=== PATIENT | female | born 1935 | race Caucasian/White ===

== ENCOUNTER 2018-06-26 13:56 | Emergency (ER) | payer OTHER, MEDICARE ==
[2018-06-26] MEDS ORDERED: AMLO-127 PO (14:11)
[2018-06-26] MEDS ORDERED: DUL20 PO (14:12)
[2018-06-26] MEDS ORDERED: DIPHTH/TETANUS/ACEL. PERTUSSIS IM ONE (14:20)
[2018-06-26 14:33] LABS: PLATELET COUNT, AUTOMATED 289 K/uL (150-450)
[2018-06-26 14:39] LABS: INR 0.92
[2018-06-26] MEDS ORDERED: IOPAMIDOL 76% 150 ML INFUS BTL 150 ML ONE (14:40)
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
[2018-06-26 16:00] VITALS: BP 166/92
== END 2018-06-26 16:17 | disposition home or self-care (01) ==
LOC: ER 14:00
DX: S42.022A Displaced fracture of shaft of left clavicle, initial encounter for closed fracture (principal); V48.5XXA Car driver injured in noncollision transport accident in traffic accident, initial encounter
CPT/HCPCS: 70450; 71045; 71260; 72125; 72170; 73130; 74177; 80305; 80320; 81001; 83605; 83690; 85025; 85610; 85730; 90471; 90715; 99284; L3982; Q9967; 82040; 82247; 82310; 82374; 82435; 82565; 82947; 84075; 84132; 84155; 84295; 84450; 84460; 84520